=== PATIENT | female | born 1970 | race Caucasian/White ===

== ENCOUNTER 2019-01-10 10:24 | Emergency (ER) | payer MEDICAID ==
[~2019-01-10] VITALS: Ht 160 cm; Wt 68.0 kg
[~2019-01-10 10:24] MED LIST: ALBU90OI INH; CEPH500 PO; Prednisone20 MG PO; Q-Tussin100 MG/5 M PO; Zithromax250 MG PO
[2019-01-10] MEDS ORDERED: Flonase 0.05% N16 GM (11:01)
[2019-01-10] MEDS ORDERED: Sudogest30 MG PO (11:01)
[2019-01-10] MEDS ORDERED: ALBU90OI61 INH (12:02)
== END 2019-01-10 12:33 | disposition home or self-care (01) ==
LOC: ER 10:24
DX: J40 Bronchitis, not specified as acute or chronic (principal); J32.9 Chronic sinusitis, unspecified; F17.210 Nicotine dependence, cigarettes, uncomplicated
CPT/HCPCS: 71046; 94640; 99283-25; J7512

== ENCOUNTER → 2022-09-28 | Outpatient (CLI) | payer OTHER ==
[~2022-09-28] MED LIST changes: +ALBU90OI61 INH; +Flonase 0.05% N16 GM; +Sudogest30 MG PO
== END ==
LOC: LAB 14:26 → LAB SHORT 14:26
DX: N39.0 Urinary tract infection, site not specified (principal)
CPT/HCPCS: 87086

== ENCOUNTER 2024-09-04 12:02 | Emergency (ER) | payer OTHER ==
[~2024-09-04] VITALS: Ht 160 cm; Wt 72.6 kg
[2024-09-04 12:26] VITALS: BP 162/90
[2024-09-04] MEDS ORDERED: Methocarbamol 500 MG Tab PO ONE (13:30)
[2024-09-04] MEDS ORDERED: Ketorolac Tromethamine 15mg Vial IM ONE (13:30)
== END 2024-09-04 15:32 | disposition home or self-care (01) ==
LOC: ER 12:02
DX: S83.92XA Sprain of unspecified site of left knee, initial encounter (principal); M54.32 Sciatica, left side; F17.200 Nicotine dependence, unspecified, uncomplicated; Z88.5 Allergy status to narcotic agent; Z91.041 Radiographic dye allergy status; Z79.52 Long term (current) use of systemic steroids; Z79.899 Other long term (current) drug therapy; W19.XXXA Unspecified fall, initial encounter
CPT/HCPCS: 73562-LT; 96372; 99283-25; A9270; J1885

== ENCOUNTER 2024-12-25 08:41 | Day surgery (SDC) | payer OTHER ==
[~2024-12-25] VITALS: Ht 160 cm; Wt 76.8 kg
[~2024-12-25 08:41] MED LIST changes: +EPINEPhrine HCl 1 MG/ML 1ML Amp ONE; +Lidocaine 2%-Epineph 1:100000 20 ML MDV ONE
[2024-12-25] MEDS ORDERED: CeFAZolin Sodium 2,000 MG VIAL ONE (08:53)
[2024-12-25] MEDS ORDERED: Lactated Ringer's 1,000 ML IV ONE ×2 (09:18→10:46)
[2024-12-25] MEDS ORDERED: Midazolam HCl 1MG / ML 2ML Vial ONE (09:41)
[2024-12-25] MEDS ORDERED: FentaNYL Citrate 50 MCG/ML 2 ML Injection ONE (09:41)
[2024-12-25] MEDS ORDERED: propofoL 20 ML IV ONE (09:41)
[2024-12-25] MEDS ORDERED: Dexamethasone Sod Phos 10 MG/ML 1ML VIAL ONE (10:00)
[2024-12-25] MEDS ORDERED: Ketorolac Tromethamine 30mg Vial ONE (10:00)
[2024-12-25] MEDS ORDERED: Ondansetron HCl 2 MG / ML 2ML Vial ONE (10:00)
[2024-12-25] MEDS ORDERED: OxyCODONE HCL 5 MG TAB ONE (11:17)
[2024-12-25 11:18] VITALS: BP 146/73
== END 2024-12-25 11:38 | disposition home or self-care (01) ==
LOC: ORSCSDS 08:41
PROVIDERS: Orthopaedic Surgery
PROC: 0SBD4ZZ Excision of Left Knee Joint, Percutaneous Endoscopic Approach (ICD-10-PCS; principal; 2024-12-25 10:15)
DX: S83.242A Other tear of medial meniscus, current injury, left knee, initial encounter (principal); M94.262 Chondromalacia, left knee; J45.909 Unspecified asthma, uncomplicated; F17.210 Nicotine dependence, cigarettes, uncomplicated; K21.9 Gastro-esophageal reflux disease without esophagitis; Z79.899 Other long term (current) drug therapy
CPT/HCPCS: A9270; J0171; J0690; J1100; J1885; J2250; J2405; J2704; J3010; J7120